=== PATIENT | female | born 1955 ===

== ENCOUNTER 2020-09-26 15:48 | Day surgery (SDC) | payer MEDICARE, OTHER ==
[2020-09-26] MEDS ORDERED: PYRIDIUM 100MG100 MG PO (17:24)
[2020-09-26] MEDS ORDERED: NORCO 325 MG-51 TAB PO (17:25)
--- NOTE | 2020-09-26 18:48 | NUR ---
Patient arrived to the floor, IV was initiated, pre-op fluids (NS) were started at 30mL/hr. Consent was signed and the patient was taken down for the procedure. This RN just received report from post-op. Patient was just brought back to the floor, post-op VS initiated, and report was given to the oncoming nurse.
[2020-09-26 19:10] VITALS: BP 90/86; PULSE 67; TEMP 97.8
[2020-09-26 20:25] VITALS: BP 98/65; PULSE 59; TEMP 98
--- NOTE | 2020-09-26 20:50 | NUR ---
Assessment completed, alert and oriented. VS are stable except for the BP which is low. Patient is asking for food to eat but her tray was a plate of pasta with cheese and she is lactose intolerance. She refused to eat that and no sandwich tray available. She said that she will eat when she get home. She is adamant to leave so DC paper is done. She said that they didn't do anything in OR she passed the stones alreday at home so theres no way for her to stay in the hospital. DC paper was signed, IV pulled out and Tech helped her down with wheelchair with her son. Time left noted 2029.
[2020-10-07 09:34] VITALS: BP 112/58; PULSE 90; TEMP 97.5
== END 2020-09-26 20:30 | disposition home or self-care (01) ==
LOC: SDCO 15:48 → SURG 16:04 → SDCO 16:59 → SURG 17:00 → SDCO 20:30 → SURG 20:30
DX: N20.1 Calculus of ureter (principal); E78.5 Hyperlipidemia, unspecified; F41.9 Anxiety disorder, unspecified; I10 Essential (primary) hypertension; E55.9 Vitamin D deficiency, unspecified; I25.2 Old myocardial infarction; I25.10 Atherosclerotic heart disease of native coronary artery without angina pectoris; G47.33 Obstructive sleep apnea (adult) (pediatric); M06.9 Rheumatoid arthritis, unspecified; J84.9 Interstitial pulmonary disease, unspecified; Z87.891 Personal history of nicotine dependence; Z79.82 Long term (current) use of aspirin; Z79.02 Long term (current) use of antithrombotics/antiplatelets; Z79.899 Other long term (current) drug therapy; Z95.818 Presence of other cardiac implants and grafts; Z96.0 Presence of urogenital implants
CPT/HCPCS: C1769; J0330; J0690; J1100; J1885; J2405; J2704; J3010; Q9967

== ENCOUNTER 2021-04-07 15:16 | Emergency (ER) | payer MEDICARE, OTHER ==
[~2021-04-07] VITALS: Ht 167.6 cm; Wt 90.9 kg
[~2021-04-07 15:16] MED LIST: NORCO 325 MG-51 TAB PO; PYRIDIUM 100MG100 MG PO
[2021-04-07 15:40] VITALS: TEMP 97.5
[2021-04-07 16:41] LABS: BASO % 0.3 % (0.0-2.0); EOS # 0.2 K/mm3 (0.0-0.7); EOS % 1.4 % (0.0-4.0); GRAN % 76.1 % (42.2-75.2); HEMATOCRIT 41.3 % (37.0-47.0); HEMOGLOBIN 13.4 g/dl (12.5-16.0); LYMPH # 1.3 K/mm3 (1.2-3.4); LYMPH % 12.1 % (20.0-51.0); MEAN CELL VOLUME 97 fl (80.0-100.0); MEAN CORPUSCULAR HEMOGLOBIN 32 pg (27-31); MEAN CORPUSCULAR HGB CONC 32 g/dl (33.0-37.0); MEAN PLATELET VOLUME 10.2 fl (7.4-10.4); MONO % 9.6 % (1.7-9.3); PLATELET COUNT 384 K/mm3 (130-400); RED BLOOD COUNT 4.26 M/mm3 (4.10-5.30); REDCELL DISTRIBUTION WIDTH-CV 12.5 % (11.5-14.5)
[2021-04-07 16:57] LABS: ALANINE AMINOTRANSFERASE 16 U/L (0-55); ALBUMIN 3.1 gm/dL (3.4-4.8); ALKALINE PHOSPHATASE 108 U/L (40-150); ANION GAP 11 mmol/L (7-16); AST,SGOT 19 U/L (5-34); BILIRUBIN,TOTAL 0.3 mg/dL (0.2-1.2); BLOOD UREA NITROGEN 17 mg/dL (10-20); CALCIUM 9.6 mg/dL (8.4-10.2); CARBON DIOXIDE 24 mmol/L (23-31); CHLORIDE 106 mmol/L (98-107); GLUCOSE 112 mg/dL (70-99); SODIUM 141 mmol/L (136-145); TOTAL PROTEIN 8.2 gm/dL (6.2-8.1)
[2021-04-07 17:08] LABS: TROPONIN-I < 0.010 ng/mL (0.00-0.033)
[2021-04-07] MEDS ORDERED: NEB MC (18:05)
[2021-04-07] MEDS ORDERED: IPRATROPIUM BROM3 M1 IH (18:07)
[2021-04-07] MEDS ORDERED: DECADRON6 MG PO (18:07)
[2021-04-07 18:21] VITALS: BP 124/63; PULSE 80
== END 2021-04-07 18:21 | disposition home or self-care (01) ==
LOC: COL.ER 15:16
PROVIDERS: Physician Assistant
DX: J96.11 Chronic respiratory failure with hypoxia (principal); R04.2 Hemoptysis; J84.9 Interstitial pulmonary disease, unspecified; U09.9 Post COVID-19 condition, unspecified
CPT/HCPCS: J1100

== ENCOUNTER 2022-11-20 15:13 | Inpatient (IN) | payer MEDICARE, OTHER ==
[~2022-11-20] VITALS: Ht 167.6 cm; Wt 100.3 kg
[~2022-11-20 15:13] MED LIST changes: +DECADRON6 MG PO; +IPRATROPIUM BROM3 M1 IH; +NEB MC
[2022-11-20 16:35] LABS: ALBUMIN 3.6 gm/dL (3.4-4.8); BILIRUBIN,TOTAL 0.2 mg/dL (0.2-1.2); C-REACTIVE PROTEIN 0.18 mg/dL (0.00-0.50); CREATININE, serum 0.96 mg/dL (0.57-1.11); MAGNESIUM 1.9 mg/dL (1.6-2.6); TOTAL PROTEIN 6.9 gm/dL (6.2-8.1)
[2022-11-20 17:10] LABS: BASO % 0.1 % (0.0-2.0); GRAN # 17.4 K/mm3 (1.4-6.5); HEMATOCRIT 37.7 % (37.0-47.0); HEMOGLOBIN 12.7 g/dl (12.5-16.0); LYMPH # 0.6 K/mm3 (1.2-3.4); LYMPH % 2.9 % (20.0-51.0); MEAN CELL VOLUME 98 fl (80.0-100.0); MEAN CORPUSCULAR HEMOGLOBIN 33 pg (27-31); MEAN CORPUSCULAR HGB CONC 34 g/dl (33.0-37.0); MEAN PLATELET VOLUME 10.1 fl (7.4-10.4); MONO # 1.4 K/mm3 (0.1-0.6); MONO % 7.4 % (1.7-9.3); PLATELET COUNT 239 K/mm3 (130-400); RED BLOOD COUNT 3.84 M/mm3 (4.10-5.30); REDCELL DISTRIBUTION WIDTH-CV 12.2 % (11.5-14.5)
[2022-11-20 17:13] LABS: COLLECTION METHOD CLEAN CATCH
[2022-11-20 18:07] LABS: URINE APPEARANCE Cloudy (CLEAR/HAZY); URINE COLOR Yellow (YELLOW); URINE PROTEIN(semi-quant) 1+ (NEGATIVE)
[2022-11-20 18:08] LABS: URINE KETONE Negative (NEGATIVE)
[2022-11-20 18:09] LABS: URINE BLOOD 1+ (NEGATIVE); URINE GLUCOSE Negative (NEGATIVE); URINE NITRATE Positive (NEGATIVE); URINE RBC 0-2 /hpf (0-2); URINE UROBILINOGEN 0.2 E.U/dL (0.2-1.0)
[2022-11-20 18:10] LABS: SQUAMOUS EPITHELIAL 0-2 /hpf (0-10)
[2022-11-20 20:00] VITALS: BP 107/51; PULSE 68; TEMP 98.2
[2022-11-20] MEDS ORDERED: VITAMIN D 50,1.25 MG PO (20:30)
[2022-11-20] MEDS ORDERED: LIPITOR 80MG80 MG PO (20:32)
[2022-11-20] MEDS ORDERED: PLAVIX 75MG TAB75 MG PO (20:33)
[2022-11-20] MEDS ORDERED: FOLIC ACID 11 MG/TA1 PO (20:36)
[2022-11-20] MEDS ORDERED: TOPAMAX50 MG PO (20:36)
[2022-11-20] MEDS ORDERED: LOPRESSOR 225 MG/TAB PO (20:38)
[2022-11-20] MEDS ORDERED: PROTONIX 40MG T40 MG PO (20:39)
[2022-11-20] MEDS ORDERED: ZETIA 10MG TAB10 MG PO (20:40)
[2022-11-20] MEDS ORDERED: PLAQUENIL 200M200 MG PO (20:40)
[2022-11-20] MEDS ORDERED: ZYRTEC 10MG10 MG PO (20:41)
[2022-11-20] MEDS ORDERED: ASPIRIN 32325 MG/TAB PO (20:42)
[2022-11-20] MEDS ORDERED: CYMBALTA 60MG60 MG PO (20:43)
[2022-11-20 23:56] VITALS: BP 111/53; PULSE 78; TEMP 98.1
--- NOTE | 2022-11-20 23:59 | NUR ---
Patient arrived to the floor at 2002 via ED cart with ER Nurse and supportive , IV infusing well on her left forearm, NS at 50cc/hr with ongoing ciprofloxacin, admission assessment and intake done, medrec done, instructed to be on NPO postmidnight, repots pain to left flank PS of 6/10, morphine given as ordered, plan of care discussed for this shift to included pain/meds, calling for questions or concerns, call light and personal items within reach, will continue to monitor.
[2022-11-21] VITALS (546 sets, daily range): BP systolic 94–138; BP diastolic 39–73; PULSE 59–136; TEMP 98.5–102.8; O2SAT 84–98
--- NOTE | 2022-11-21 04:55 | NUR ---
Patient resting in bed, eyes closed, looks comfortable.
--- NOTE | 2022-11-21 08:45 | NUR ---
PT RESTING IN BED WITH PAIN 6/10 AT THIS TIME. PT AMBULATING AROUND ROOM INDEPENDENTLY, STEADY GAIT. FAMILY AT BEDSIDE. SURGICAL CONSENTS SIGNED, WILL CONTINUE TO MONITOR.
[2022-11-21] MEDS ORDERED: PERCOCET 325 MG1 TA2 PO (10:26)
[2022-11-21] MEDS ORDERED: FLOMAX 0.40.4 MG/CAP PO (10:26)
--- NOTE | 2022-11-21 11:46 | NUR ---
Welder rounds: Patient was in surgery. Visitor was waiting in room 328 in recliner. Visitor declined Welder's offer of prayer. At charting, Welder discovered Patient moved to ICU.
--- NOTE | 2022-11-21 12:08 | NUR ---
Knitter Helper met with patient's , Luis (ph#[phone]) to complete intake as patient was down in surgery. Per Luis, he and patient live in [place] and patient sees Dr. Gunn for primary care. Patient obtains medications from [facility] with no difficulties. Luis advised patient is to be set up with a CPAP this week. Patient has an [employer] oxygen concentrator at home that she purchased online. Per Luis, patient uses it as needed. Patient is normally independent with ADLS and Luis advised he is patient's DPOA-HC. Patient plans to return back home at time of discharge. Discharge Plan: Home
[2022-11-21 12:17] LABS: HEMOGLOBIN 12.7 g/dl (12.5-16.0); MEAN CELL VOLUME 100 fl (80.0-100.0); MEAN CORPUSCULAR HEMOGLOBIN 33 pg (27-31); MEAN CORPUSCULAR HGB CONC 33 g/dl (33.0-37.0); MEAN PLATELET VOLUME 10.4 fl (7.4-10.4); PLATELET COUNT 182 K/mm3 (130-400); RED BLOOD COUNT 3.82 M/mm3 (4.10-5.30); REDCELL DISTRIBUTION WIDTH-CV 12.7 % (11.5-14.5)
[2022-11-21 12:18] LABS: CALCIUM 8.1 mg/dL (8.4-10.2); CREATININE, serum 1.04 mg/dL (0.57-1.11); MAGNESIUM 1.3 mg/dL (1.6-2.6); POTASSIUM 3.6 mmol/L (3.5-4.5)
--- NOTE | 2022-11-21 12:21 | NUR ---
REPORT CALLED TO ELISA IN ICU. NO FUTHER QUESTIONS AT THIS TIME.
[2022-11-21 12:59] LABS: BAND 10 % (0-10); LYMPHOCYTE 4 % (20.0-51.0); NEUTROPHILS 83 % (42.0-75.2); PLATELET ESTIMATE NORMAL (NORMAL)
--- NOTE | 2022-11-21 13:03 | NUR ---
Pt transfered from PACU via bed by staff x 1. Pt transfered to bed by taff x3 with slide board. Pt not alert, but arousable with verbal stimulation. LR running upon arrival. Assessments completed. brought to bedside, updated on cares and all questions answered at this time. Bed in lowest position with call light within reach. No additional needs anticipated at this time. Called Chhaya for additional report.
--- NOTE | 2022-11-21 19:10 | NUR ---
Received report from AVA Felipe.
--- NOTE | 2022-11-21 19:30 | NUR ---
Patient resting quietly in bed watching TV. Patient's at bedside. Vitals within normal limits. She continues to receive oxygen at 3L via nasal cannula, tolerating well. Patient states she is experiencing 5/10 pain, but states it is more discomfort related to the urge to void. Patient assisted with use of bed almonte.
[2022-11-22] VITALS (805 sets, daily range): BP systolic 90–112; BP diastolic 39–68; PULSE 52–76; TEMP 97.9–99.1; O2SAT 75–100
[2022-11-22 04:49] LABS: HEMOGLOBIN 10.9 g/dl (12.5-16.0); MEAN CELL VOLUME 99 fl (80.0-100.0); MEAN CORPUSCULAR HEMOGLOBIN 33 pg (27-31); MEAN CORPUSCULAR HGB CONC 33 g/dl (33.0-37.0); MEAN PLATELET VOLUME 10.3 fl (7.4-10.4); PLATELET COUNT 174 K/mm3 (130-400); RED BLOOD COUNT 3.33 M/mm3 (4.10-5.30); REDCELL DISTRIBUTION WIDTH-CV 12.9 % (11.5-14.5)
[2022-11-22 04:50] LABS: HEMATOCRIT 33.1 % (37.0-47.0)
[2022-11-22 05:06] LABS: CALCIUM 7.9 mg/dL (8.4-10.2); CREATININE, serum 1.29 mg/dL (0.57-1.11); MAGNESIUM 2.5 mg/dL (1.6-2.6); POTASSIUM 4.6 mmol/L (3.5-4.5)
[2022-11-22 05:41] LABS: BAND 3 % (0-10); LYMPHOCYTE 3 % (20.0-51.0); NEUTROPHILS 92 % (42.0-75.2); OVALOCYTES 1+; PLATELET ESTIMATE NORMAL (NORMAL)
--- NOTE | 2022-11-22 08:30 | NUR ---
PT REPORT RECEIVED AT 0700. PT A&O X3 WITH CALL LIGHT WITHIN REACH. VS WNL, NS INFUSING PER MAR. PT ASSISTED TO BEDSIDE COMMODE WITH SBA X1 WITH NO CONCERNS. ALL QUESTIONS ANSWERED AT THIS TIME AND PT DENIES ADDITIONAL NEEDS AT THIS TIME.
--- NOTE | 2022-11-22 15:05 | NUR ---
REPORT RECEVIED FROM CHANDAN AT 1450. CHANDAN CAME TO THE ICU AND ASSISTED PT TO WHEELCHAIR AND WHEELED HER OUT OF ICU.
--- NOTE | 2022-11-22 15:55 | NUR ---
PATIENT BROUGHT TO FLOOR APPROXIMATELY 1500. PATIENT ALERT AND ORIENTED X4. VSS. PATIENT HERE FOR ICU TX S/P CYSTO AND LEFT URETERAL STENT PLACEMENT. PATIENT DENIES ANY PAIN. PATIENT REPORTS INTERMITTENT BLADDER SPASMS, BUT DENIES NEED FOR ANY PAIN MEDICATION. IV TO LEFT FA WITH NS RUNNING AT 50ML/HOUR. PATIENT ON RA. CALL LIGHT IN REACH, PATIENT IN BED, NO FURTHER NEEDS AT THIS TIME.
--- NOTE | 2022-11-22 20:00 | NUR ---
UPON SHIFT ASSESSMENT JERRELL WAS PLEASANT AXO X 4, DENIED PAIN OR SOA. VSS WERE WNL. SHE DID EXPERIENCE LOW BP'S HOWEVER, THE PATIENT STATED, "MY BLOOD PRESSURES ARE LOW." RECHECK MANUAL BP 98/68. SHE HAD NO BP MEDICATIONS SCHEDULED AND A LATER BP CHECK WAS 103 SYSTOLIC.MEWS SCORES REMAIN AT 1. CALL LIGHT WITHIN REACH
[2022-11-23] VITALS: BP 112/53; PULSE 61; TEMP 98.5
[2022-11-23 03:24] VITALS: BP 153/69; PULSE 78; TEMP 97.9
[2022-11-23 03:29] VITALS: BP 103/38; PULSE 63; TEMP 98.3
[2022-11-23 04:45] VITALS: BP 103/38; PULSE 63; TEMP 98.3
[2022-11-23 06:03] LABS: BASO % 0.1 % (0.0-2.0); EOS # 0.2 K/mm3 (0.0-0.7); EOS % 1.2 % (0.0-4.0); GRAN # 12.3 K/mm3 (1.4-6.5); GRAN % 83.1 % (42.2-75.2); HEMATOCRIT 36.1 % (37.0-47.0); HEMOGLOBIN 11.8 g/dl (12.5-16.0); LYMPH % 6.8 % (20.0-51.0); MEAN CELL VOLUME 104 fl (80.0-100.0); MEAN CORPUSCULAR HEMOGLOBIN 34 pg (27-31); MEAN CORPUSCULAR HGB CONC 33 g/dl (33.0-37.0); MEAN PLATELET VOLUME 11.3 fl (7.4-10.4); MONO # 1.2 K/mm3 (0.1-0.6); MONO % 8.3 % (1.7-9.3); PLATELET COUNT 170 K/mm3 (130-400); RED BLOOD COUNT 3.46 M/mm3 (4.10-5.30)
[2022-11-23 07:04] LABS: CREATININE, serum 1.22 mg/dL (0.57-1.11); MAGNESIUM 1.8 mg/dL (1.6-2.6); POTASSIUM 3.9 mmol/L (3.5-4.5)
[2022-11-23 07:08] VITALS: BP 112/67; PULSE 62; TEMP 98.8
--- NOTE | 2022-11-23 08:59 | NUR ---
JERRELL CONTINUES TO BE PLEASANT AND HAS NO EMERGENT ISSUES. SHE TENDED TO HAVE LOW BLOOD PRESSURES THAT WERE CONSIDERED TO BOTH HER AND HER BASELINE FOR HER- 100'S SYSTOLIC. SHE CONTINUES TO RECIEVE IV ZOSYN AND REQUESTED AND WAS GIVEN TYLENOL FOR LT FLANK PAIN. SHE IS AXO X 4 AND VSS ARE WNL.
[2022-11-23] MEDS ORDERED: ASPIRIN E.C. 8181 MG PO (09:07)
[2022-11-23] MEDS ORDERED: AMOXICILLIN 8751 TAB PO (09:11)
[2022-11-23] MEDS ORDERED: ZOFRAN ODT4 MG PO (11:29)
--- NOTE | 2022-11-23 11:44 | NUR ---
Assessment completed. Discharge instructions reviewed with patient and her family- both verbalize understanding. Reports pain 05/24 but denies offer for pain medication. Tele d/c'd. INT d/c'd. Pt escorted to private vehicle via wheelchair and discharged home with daughter.
--- NOTE | 2022-11-23 13:13 | NUR ---
shafting worker was notified patient was medically stable to discharge today. shafting worker met with patient to review important message from [employer]. Patient verbalized she understood her rights. Patient signed form, 7th grade social studies teacher made a copy, placed original in file and provided copy to patient. No further concerns or needs at this time. Discharge Plan: Home
== END 2022-11-23 11:45 | disposition home or self-care (01) | DRG 853 ==
LOC: COL.ER 15:13 → SURG 18:45 → ICU 18:45 → MEDICAL 11-22 15:20
PROVIDERS: Emergency Medicine; Internal Medicine; ADMIT Urology
PROC: 0T778DZ Dilation of Left Ureter with Intraluminal Device, Via Natural or Artificial Opening Endoscopic (ICD-10-PCS; principal; 2022-11-21 11:00)
PROC: 0TC78ZZ Extirpation of Matter from Left Ureter, Via Natural or Artificial Opening Endoscopic (ICD-10-PCS; 2022-11-21 11:00)
DX: A41.9 Sepsis, unspecified organism (principal); G92.8 Other toxic encephalopathy; J69.0 Pneumonitis due to inhalation of food and vomit; N17.9 Acute kidney failure, unspecified; N20.1 Calculus of ureter; E78.5 Hyperlipidemia, unspecified; I25.10 Atherosclerotic heart disease of native coronary artery without angina pectoris; M06.9 Rheumatoid arthritis, unspecified; K21.9 Gastro-esophageal reflux disease without esophagitis; N94.10 Unspecified dyspareunia; D72.829 Elevated white blood cell count, unspecified; T38.0X5A Adverse effect of glucocorticoids and synthetic analogues, initial encounter; R00.0 Tachycardia, unspecified; T40.605A Adverse effect of unspecified narcotics, initial encounter; G47.33 Obstructive sleep apnea (adult) (pediatric); Z88.1 Allergy status to other antibiotic agents; Z88.5 Allergy status to narcotic agent; Z88.8 Allergy status to other drugs, medicaments and biological substances; Z95.5 Presence of coronary angioplasty implant and graft; Z90.710 Acquired absence of both cervix and uterus; Z87.891 Personal history of nicotine dependence; Z90.49 Acquired absence of other specified parts of digestive tract; Z85.41 Personal history of malignant neoplasm of cervix uteri; I25.2 Old myocardial infarction; Z99.89 Dependence on other enabling machines and devices; Z79.899 Other long term (current) drug therapy; Z79.82 Long term (current) use of aspirin; Z79.02 Long term (current) use of antithrombotics/antiplatelets
CPT/HCPCS: C1769; C1894; C2617; C9113; J0690; J0696; J0744; J1100; J1170; J2270; J2405; J2543; J2550; J2704; J3010; J3475; J7030; J7040; Q9967